=== PATIENT | female | born 1995 | race Caucasian/White ===

== ENCOUNTER 2021-10-06 16:52 | Inpatient (IN) ==
[2021-10-06 17:56] LABS: Basophils # (auto) 0.01 K/uL (0-0.2); Basophils % (auto) 0.1 %; Eosinophils # (auto) 0.07 K/uL (0-0.5); Eosinophils % (auto) 0.8 %; Hematocrit (blood only) 36.7 % (37-47); Hemoglobin 11.8 g/dL (12.0-16.0); Immature Granulocytes # (auto) 0.02 K/uL (0.00-0.02); Immature Granulocytes % (auto) 0.2 %; Lymphocytes # (auto) 1.59 K/uL (1.2-3.4); Lymphocytes % (auto) 19.2 %; Mean Corpuscular Hemoglobin 26.5 pg (25-34); Mean Corpuscular Hgb Conc 32.2 g/dL (32-36); Mean Corpuscular Volume 82.3 fL (80-100); Monocytes # (auto) 0.75 K/uL (0.11-0.59); Monocytes % (auto) 9.1 %; Neutrophils # (auto) 5.82 K/uL (1.4-6.5); Neutrophils % (auto) 70.6 %; Platelet Count 193 K/uL (130-400); RDW Coefficient of Variation 14.4 % (11.5-14.5); RDW Standard Deviation 42.9 fL (36.4-46.3); Red Blood Count 4.46 M/uL (4.2-5.4); White Blood Count 8.26 K/uL (4.8-10.8)
[2021-10-06 18:24] LABS: Albumin Globulin Ratio 1.1 (0.9-2); Albumin Level 3.1 gm/dl (3.4-5.0); BUN Creatinine Ratio 18.2 (10-20); Bilirubin,Total 0.3 mg/dl (0.2-1.0); Calcium 9.1 mg/dl (8.5-10.1); Creatinine Clr Calc Pharmacy 119.9 ml/min; Est GFR (African American) 141.3 ml/min; Est GFR (Non-African American) 121.9 ml/min; Globulin 2.9 gm/dl (2.5-4.0)
[2021-10-06 19:22] LABS: Creatinine Urine Random 67.4 mg/dl; Protein Creatinine Ratio Urine 2.8 (0-0.2); Total Protein Urine Random 190.7 mg/dl (0-11.9)
[2021-10-06] MEDS ORDERED: FAMOTIDINE 20 MG TAB PO STA (20:42)
[2021-10-06] MEDS ORDERED: OXYTOCIN 30 UNITS/500 ML BAG IV PRN ×2 (22:17→22:18)
[2021-10-06] MEDS ORDERED: CARBOHYDRATES FOR HYPOGLYCEMIA PO PRN (22:45)
[2021-10-06] MEDS ORDERED: GLUCOSE 10 TABS/TUBE PO PRN (22:45)
[2021-10-06] MEDS ORDERED: GLUCOSE 40% GEL 15 GM TUBE PO PRN (22:45)
[2021-10-06] MEDS ORDERED: GLUCAGON FOR INJ 1 MG VIAL IM PRN (22:45)
[2021-10-06] MEDS ORDERED: DEXTROSE 50% 50 ML SYRINGE IV PRN (22:45)
--- NOTE | 2021-10-06 22:51 | History & Physical Report ---
Date of Service October 06, 2021 Assessment & Plan (1) Pre-eclampsia, mild: Plan: Elevated BPs on admission to L&D. Urine protein/creatinine ratio is 2.8. Blood testing for preeclampsia is negative. Recommend, given elevated BPs and proteinuria, that we keep patient for admission and begin IOL now. She is agreeable. For GDMA2, will have her eat dinner prior to placement of snowden bulb and then will give nighttime dose of insulin, 14u NPH. Snowden bulb was placed, 35cc sterile water. Tolerated well. Will begin low-dose pitocin for cervical ripening. Pt requesting pain meds if needed overnight - ok for stadol prn. Admission and Anticipated Discharge Date Admission Date: October 06, 2021 History of Present Illness Chief Complaint: IOL, proteinuria Primary Care Provider: ERNESTINE Bruno 26yo @ 39 10/31, directed to L&D from office today when routine urine protein dip showed 3+ proteinuria. She is preparing for IOL tomorrow for GDMA2. +FM, no VB. No LOF. Irreg ctx. No headache, vision changes, RUQ pain. Allergies Allergy/AdvReac Type Severity Reaction Status Date / Time No Known Allergies Allergy Verified 10/06/21 17:13 Home Medications Medication Instructions Recorded Confirmed Type prenat.vits,mati,upc-[id number] 1 tab PO DAILY 02/16/21 10/06/21 History ferrous sulfate 325 mg (65 mg 65 mg PO DAILY 05/10/21 10/06/21 History iron) tablet (FeroSul) acetone (urine) test (Ketone Urine #50 ea 06/03/21 10/06/21 Rx Test) blood sugar diagnostic (OneTouch #150 ea 07/04/21 10/06/21 Rx Verio test strips) pen needle, diabetic 32 gauge x #100 ea 07/08/21 10/06/21 Rx 5/32" (BD Ultra-Fine Afshan Pen Needle) insulin NPH isoph U-100 human 100 14 unit SUBCUT QPM 10/06/21 10/06/21 History unit/mL (3 mL) subcutaneous pen (Humulin N NPH U-100 Insulin KwikPen) sertraline 50 mg tablet (Zoloft) 50 mg PO DAILY 10/06/21 10/06/21 History Patient History Medical History Acne Anxiety Depression Varicella vaccination Surgical History S/P wisdom tooth extraction Family History Grandmother (Maternal) Uterine cancer Aunt Breast cancer Denies family history of Ovarian cancer Prostate cancer Myocardial infarction Colorectal cancer Social History Smoking Status: Never smoker Second Hand Exposure: No; Hx Alcohol Use: No Hx Substance Use: No Preferred Language: Cambodian Communication Ability: Effective Visual Impairment: No Limitations Hearing Ability: Normal [employer] Estate Sales [employer] Required: No Beliefs That Will Affect Care: None marital status: marital status details: Zachary Hill (25) [phone] Current Living Situation: Spouse Current Living Situation Comment: lives with spouse, cat-spouse changing litter current occupational status: employed 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 How many Children do You have: 0 Other Information That Helps Us Care for You: No Feels Safe at Home: Yes Safety Concerns: Feels Safe At This Time Childhood Exposure to Second-Hand Smoke: No caffeine: Yes (nevers drinks more than 8oz of coffee ) during the past year weight has: remained stable Dental Care, Regularly: No Physical Activity Frequency: Does not Exercise Seatbelt Use: always Sunscreen Use: Yes Assistive Devices: None Review of Systems All systems reviewed & are unremarkable except as noted in HPI & below Physical Exam Physical Exam: Cervix 1/50/-3 FHT Cat 1 [place] irreg Constitutional: WD/WN, vitals as above Respiratory: normal respiratory effort, lungs clear to auscultation no respiratory distress Cardiovascular: Rate/Rhythm: regular rate and regular rhythm Gastrointestinal (Abdomen): Inspection/Auscultation: abdomen normal to inspection Percussion/Palpation: abdomen soft; abdomen nontender Gravid. No s/s chorio or abruption. Skin: no rashes, warm and dry Psychiatric: A+Ox3, euthymic affect Results & Data ([facility]) Vital Signs (Past 12 Hours) Vital Signs Temp Pulse Resp BP 10/06/21 21:59 111 H 148/97 H 10/06/21 20:33 37.3 C 83 20 151/97 H 10/06/21 19:21 89 138/96 10/06/21 19:12 87 136/103 H 10/06/21 19:01 89 143/101 H 10/06/21 18:52 89 139/96 10/06/21 18:42 86 152/90 H 10/06/21 18:33 93 H 156/97 H 10/06/21 18:21 88 145/101 H 10/06/21 18:11 82 138/92 10/06/21 18:03 88 160/98 H 10/06/21 17:51 85 157/111 H 10/06/21 17:31 85 143/103 H 10/06/21 17:21 87 146/105 H 10/06/21 17:10 37.1 C 83 20 140/107 H Coding Level of Care Code None Diagnoses Pre-eclampsia, mild O14.00
[2021-10-06] MEDS ORDERED: BUTORPHANOL TARTRATE 1 MG/ML VIAL IV PRN (22:57)
[2021-10-06] MEDS ORDERED: INSULIN HUMAN NPH SC SCH (23:25)
[2021-10-06] MEDS: LACTATED RINGER'S 1,000 ML IV PRN (23:37)
[2021-10-07] MEDS: LACTATED RINGER'S 1,000 ML IV PRN ×3 (07:22→14:02)
--- NOTE | 2021-10-07 07:50 | Labor Progress Brief Note ---
Date of Service October 07, 2021 Subjective Patient notes she is feeling well. Did get some sleep overnight. Assessment & Plan (1) Pre-eclampsia, mild: (2) Insulin controlled gestational diabetes mellitus (GDM) during : Plan: Will now start to go up on the pitocin. fetus category one. no s/s of pet, bps reasonable. Anticipate . Admission and Anticipated Discharge Date Admission Date: October 06, 2021 Physical Exam Physical Exam: snowden removed cx--3/80/-2/soft/post toco--q3-4, pit at 2 efm--110 with mod variabiltiy, accels to 150s, no decels Results & Data ([facility]) Vital Signs (Past 12 Hours) Vital Signs Temp Pulse Resp BP 10/07/21 07:18 90 121/84 10/07/21 07:00 75 131/61 10/07/21 03:45 78 127/72 10/07/21 03:30 36.7 C 16 10/07/21 02:45 77 127/74 10/07/21 01:46 77 124/79 10/07/21 00:46 90 156/105 H 10/06/21 21:59 36.8 C 111 H 16 148/97 H 10/06/21 20:33 37.3 C 83 20 151/97 H Coding Level of Care Code None Diagnoses Pre-eclampsia, mild O14.00 Insulin controlled gestational diabetes mellitus (GDM) during O24.414
[2021-10-07] MEDS ORDERED: ACETAMINOPHEN 500 MG TAB PO ONE (12:07)
[2021-10-07] MEDS ORDERED: SODIUM CHLORIDE 0.9% INJ 10 ML VIAL ONE (12:39)
[2021-10-07] MEDS ORDERED: BUPIVACAINE 0.25% 30 ML VIAL ONE (12:39)
[2021-10-07] MEDS ORDERED: ePHEDrine sulfate 50 MG/ML AMP ONE (12:39)
[2021-10-07] MEDS ORDERED: fentaNYL 2MCG/ML ROPIVACAINE 1.25MG/ML 100 ML BAG EPI ONE (12:40)
[2021-10-07] MEDS ORDERED: fentaNYL citrate 100 MCG/2 ML VIAL ONE (12:40)
[2021-10-07] MEDS ORDERED: ONDANSETRON INJ 2 MG/ML 2 ML VIAL IV PRN (13:32)
[2021-10-07] MEDS ORDERED: NALOXONE HCL 1 MG in SODIUM CHLORIDE 0.9% 1000ML 1,000 ML IV PRN (13:32)
[2021-10-07] MEDS ORDERED: NALBUPHINE HCL INJ 10 MG/ML AMP IV PRN (13:32)
[2021-10-07] MEDS ORDERED: diphenhydrAMINE 50 MG/ML VIAL IV PRN (13:32)
[2021-10-07] MEDS ORDERED: ePHEDrine sulfate 50 MG/ML AMP IV PRN (13:32)
[2021-10-07] MEDS ORDERED: NALOXONE HCL 0.4 MG/1 ML VIAL/CARP IV PRN (13:32)
--- NOTE | 2021-10-07 13:33 | Anesthesiology Consultation ---
Date of Service October 07, 2021 Assessment & Plan (1) Encounter for pre-operative examination: Chart Review Chart Review: Patient NOT seen in Pre Admission Testing and Acceptable Risk for Labor Epidural Consults Requested none History Height/Weight Height: 5 ft 1 in Weight: 75.296 kg Allergies Allergy/AdvReac Type Severity Reaction Status Date / Time No Known Allergies Allergy Verified 10/06/21 17:13 Medications Home Medications Medication Instructions Recorded Confirmed Last Taken prenat.vits,mati,ikc-zrgz-zdtrk 1 tab PO DAILY 02/16/21 10/06/21 10/05/21 21:00 ferrous sulfate 325 mg (65 mg 65 mg PO DAILY 05/10/21 10/06/21 10/05/21 21:00 iron) tablet (FeroSul) acetone (urine) test (Ketone Urine #50 ea 06/03/21 10/06/21 Unknown Test) blood sugar diagnostic (OneTouch #150 ea 07/04/21 10/06/21 Unknown Verio test strips) pen needle, diabetic 32 gauge x #100 ea 07/08/21 10/06/21 Unknown " (BD Ultra-Fine Afshan Pen Needle) insulin NPH isoph U-100 human 100 14 unit SUBCUT QPM 10/06/21 10/06/21 10/04/21 21:00 unit/mL (3 mL) subcutaneous pen (Humulin N NPH U-100 Insulin KwikPen) sertraline 50 mg tablet (Zoloft) 50 mg PO DAILY 10/06/21 10/06/21 10/05/21 21:00 Active Medications Generic Name Dose Route Start Last Admin Trade Name Freq PRN Reason Stop Dose Admin Butorphanol Tartrate 1 mg 10/06/21 22:57 10/07/21 00:56 Butorphanol Tartrate 1 Mg/Ml Vial IV 11/05/21 22:56 1 mg Q2HWA PRN Administration Pain Lactated Ringer's 1,000 mls @ 125 mls/hr 10/06/21 22:17 10/07/21 13:30 Lr IV 10/08/21 22:16 125 mls/hr .Q8H PRN Infusion L&D Protocol Protocol Oxytocin 30 units in 500 mls @ 14 mls/hr 10/06/21 22:18 10/07/21 11:58 Pitocin IV 10/08/21 22:17 0.84 units/hr .Q24H PRN 14 mls/hr Labor Induction/Augmentation Titration Protocol 0.84 UNITS/HR Insulin Human NPH 14 units 10/06/21 23:25 10/07/21 00:50 Insulin Human Nph SC 11/05/21 23:24 14 units QPM EDNA Administration Past Medical History Medical History Acne Anxiety Depression Varicella vaccination Exercise / Class Metabolic Activity II 4-5 Yardwork/Stairs/Walk up hill Past Family History Family History Grandmother (Maternal) Uterine cancer Aunt Breast cancer great aunt Denies family history of Ovarian cancer Prostate cancer Myocardial infarction Colorectal cancer Past Surgical History Surgical History S/P wisdom tooth extraction Past Anesthesia History No Hx of Anesthesia Complications and No Family Hx of Anesthesia Complications History of PONV No Hx of PONV and No Hx of Motion Sickness Social History Smoking Status: Never smoker Hx Alcohol Use: No Hx Substance Use: No Physical Exam Vital Signs Last Vital Signs Temp 36.8 C 10/07/21 11:00 Pulse 95 H 10/07/21 13:32 Resp 18 10/07/21 11:00 BP 124/76 10/07/21 13:31 Pulse Ox 99 10/07/21 13:32 Testing Laboratory Results 10/06/21 17:44 10/06/21 17:44 10/07/21 10/07/21 10/07/21 13:17 12:27 12:03 POC Glucose 82 63 L* 66 L* 10/07/21 10/07/21 10/07/21 11:00 10:07 09:22 POC Glucose 82 68 L* 75 10/07/21 10/07/21 08:16 07:27 POC Glucose 70 70
[2021-10-07] MEDS: DEXTROSE 5% 1,000 ML IV PRN ×2 (14:22→23:50)
--- NOTE | 2021-10-07 15:19 | Labor Progress Brief Note ---
Date of Service October 07, 2021 Subjective comfortable after epidural Assessment & Plan (1) Pre-eclampsia, mild: (2) Insulin controlled gestational diabetes mellitus (GDM) during : Plan: pressures good. arom. continue pitocin, fetus category one. anticipate . Admission and Anticipated Discharge Date Admission Date: October 06, 2021 Physical Exam Physical Exam: cx--4/75/-2 arom--copious clear toco--q2-4min, pit at 14 efm--120s with mod variability, small accels, +scalp stim, no decels Results & Data ([facility]) Vital Signs (Past 12 Hours) Vital Signs Temp Pulse Resp BP Pulse Ox 10/07/21 15:14 68 124/88 10/07/21 15:12 76 99 10/07/21 15:07 96 H 99 10/07/21 15:02 96 H 100 10/07/21 14:57 87 98 10/07/21 14:56 85 119/73 10/07/21 14:53 87 125/72 10/07/21 14:52 91 H 98 10/07/21 14:47 84 130/73 97 10/07/21 14:42 86 126/75 98 10/07/21 14:38 89 123/66 10/07/21 14:37 84 98 10/07/21 14:32 92 H 113/77 98 10/07/21 14:29 84 128/69 10/07/21 14:27 89 98 10/07/21 14:22 89 98 10/07/21 14:21 92 H 123/72 10/07/21 14:17 91 H 99 10/07/21 14:15 96 H 124/72 10/07/21 14:13 85 119/62 10/07/21 14:12 87 98 10/07/21 14:11 88 122/74 10/07/21 14:09 89 125/74 10/07/21 14:07 88 127/73 98 10/07/21 14:05 89 124/71 10/07/21 14:03 93 H 125/74 10/07/21 14:02 101 H 99 10/07/21 14:01 91 H 137/70 10/07/21 13:59 91 H 126/72 10/07/21 13:57 91 H 133/82 100 10/07/21 13:55 90 129/82 10/07/21 13:53 90 132/80 10/07/21 13:52 91 H 99 10/07/21 13:47 91 H 99 10/07/21 13:42 102 H 100 10/07/21 13:37 95 H 99 10/07/21 13:32 95 H 99 10/07/21 13:31 84 124/76 10/07/21 13:27 81 99 10/07/21 13:22 87 100 10/07/21 13:17 94 H 100 10/07/21 13:12 91 H 100 10/07/21 13:07 85 99 10/07/21 13:02 93 H 100 10/07/21 12:57 92 H 100 10/07/21 12:52 97 H 100 10/07/21 12:42 91 H 98 10/07/21 12:37 117 H 91 10/07/21 12:26 94 H 99 10/07/21 12:21 81 99 10/07/21 12:16 71 98 10/07/21 12:11 89 99 10/07/21 12:00 89 119/73 10/07/21 11:02 81 126/60 10/07/21 11:00 36.8 C 18 10/07/21 10:09 86 139/70 10/07/21 09:20 90 151/83 H 10/07/21 08:14 85 131/86 10/07/21 07:18 90 121/84 10/07/21 07:00 37.2 C 75 20 131/61 10/07/21 03:45 78 127/72 10/07/21 03:30 36.7 C 16 Coding Level of Care Code None Diagnoses Pre-eclampsia, mild O14.00 Insulin controlled gestational diabetes mellitus (GDM) during O24.414
--- NOTE | 2021-10-07 20:13 | Labor Progress Brief Note ---
Date of Service October 07, 2021 Subjective comfortable Assessment & Plan (1) Pre-eclampsia, mild: (2) Insulin controlled gestational diabetes mellitus (GDM) during : Plan: doing well. placed iupc, aiming for mvus 200-220, fetus category one. Admission and Anticipated Discharge Date Admission Date: October 06, 2021 Physical Exam Physical Exam: cx--5/75/-2 iupc placed toco--q3-4min, pit at 20 efm--120s with mod variability, accels to 150s, no decels Results & Data ([facility]) Vital Signs (Past 12 Hours) Vital Signs Temp Pulse Resp BP Pulse Ox 10/07/21 20:07 108 H 99 10/07/21 20:02 81 99 10/07/21 20:00 73 146/94 H 10/07/21 19:57 81 99 10/07/21 19:52 77 98 10/07/21 19:47 77 97 10/07/21 19:45 75 149/82 H 10/07/21 19:42 87 97 10/07/21 19:37 80 99 10/07/21 19:35 82 134/94 10/07/21 19:32 77 100 10/07/21 19:30 78 151/101 H 10/07/21 19:27 71 97 10/07/21 19:22 77 98 10/07/21 19:17 70 100 10/07/21 19:14 73 139/97 10/07/21 19:13 37.3 C 18 10/07/21 19:12 79 98 10/07/21 19:07 80 99 10/07/21 19:02 78 99 10/07/21 18:59 83 145/96 H 10/07/21 18:57 85 97 10/07/21 18:52 69 96 10/07/21 18:49 74 94 10/07/21 18:47 69 95 10/07/21 18:44 72 134/87 10/07/21 18:42 71 96 10/07/21 18:37 80 98 10/07/21 18:32 73 95 10/07/21 18:29 69 128/71 10/07/21 18:27 72 95 10/07/21 18:22 71 95 10/07/21 18:17 85 98 10/07/21 18:15 80 136/94 10/07/21 18:12 82 98 10/07/21 18:07 86 96 10/07/21 18:02 74 98 10/07/21 18:01 75 18 138/94 10/07/21 17:57 101 H 98 10/07/21 17:52 90 99 10/07/21 17:47 78 98 10/07/21 17:44 74 119/72 10/07/21 17:42 82 96 10/07/21 17:37 76 96 10/07/21 17:32 74 96 10/07/21 17:30 18 10/07/21 17:29 95 H 127/70 10/07/21 17:27 86 98 10/07/21 17:22 89 97 10/07/21 17:18 67 93 10/07/21 17:17 67 95 10/07/21 17:15 66 122/70 10/07/21 17:13 69 94 10/07/21 17:12 68 96 10/07/21 17:07 67 93 10/07/21 17:02 63 96 10/07/21 16:59 62 119/69 10/07/21 16:57 67 96 10/07/21 16:52 88 98 10/07/21 16:50 37.3 C 18 10/07/21 16:47 84 97 10/07/21 16:46 80 132/74 10/07/21 16:42 82 98 10/07/21 16:40 87 92 10/07/21 16:37 88 98 10/07/21 16:32 80 97 10/07/21 16:30 68 132/91 10/07/21 16:27 75 97 10/07/21 16:22 83 97 10/07/21 16:17 77 98 10/07/21 16:14 80 146/96 H 10/07/21 16:12 86 98 10/07/21 16:07 78 99 10/07/21 16:02 80 97 10/07/21 15:59 74 140/95 10/07/21 15:57 82 97 10/07/21 15:52 82 98 10/07/21 15:47 71 99 10/07/21 15:45 73 134/92 10/07/21 15:42 74 99 10/07/21 15:37 83 96 10/07/21 15:35 37.0 C 18 10/07/21 15:32 79 98 10/07/21 15:30 68 18 123/85 10/07/21 15:27 72 99 10/07/21 15:22 73 98 10/07/21 15:17 73 98 10/07/21 15:14 68 124/88 10/07/21 15:12 76 99 10/07/21 15:07 96 H 99 10/07/21 15:02 96 H 100 10/07/21 15:00 18 10/07/21 14:57 87 98 10/07/21 14:56 85 119/73 10/07/21 14:53 87 125/72 10/07/21 14:52 91 H 98 10/07/21 14:47 84 130/73 97 10/07/21 14:42 86 126/75 98 10/07/21 14:38 89 123/66 10/07/21 14:37 84 98 10/07/21 14:32 92 H 113/77 98 10/07/21 14:30 18 10/07/21 14:29 84 128/69 10/07/21 14:27 89 98 10/07/21 14:22 89 98 10/07/21 14:21 92 H 123/72 10/07/21 14:20 18 10/07/21 14:17 91 H 99 10/07/21 14:15 96 H 124/72 10/07/21 14:13 85 119/62 10/07/21 14:12 87 98 10/07/21 14:11 88 122/74 10/07/21 14:10 20 10/07/21 14:09 89 125/74 10/07/21 14:07 88 127/73 98 10/07/21 14:06 20 10/07/21 14:05 89 124/71 10/07/21 14:03 93 H 125/74 10/07/21 14:02 101 H 20 99 10/07/21 14:01 91 H 137/70 10/07/21 13:59 91 H 126/72 10/07/21 13:57 91 H 133/82 100 10/07/21 13:55 90 129/82 10/07/21 13:53 90 132/80 10/07/21 13:52 91 H 99 10/07/21 13:47 91 H 99 10/07/21 13:42 102 H 100 10/07/21 13:37 95 H 99 10/07/21 13:32 95 H 99 10/07/21 13:31 84 124/76 10/07/21 13:27 81 99 10/07/21 13:22 87 100 10/07/21 13:17 94 H 100 10/07/21 13:12 91 H 100 10/07/21 13:07 85 99 10/07/21 13:02 93 H 100 10/07/21 12:57 92 H 100 10/07/21 12:52 97 H 100 10/07/21 12:42 91 H 98 10/07/21 12:37 117 H 91 10/07/21 12:26 94 H 99 10/07/21 12:21 81 99 10/07/21 12:16 71 98 10/07/21 12:11 89 99 10/07/21 12:00 89 119/73 10/07/21 11:02 81 126/60 10/07/21 11:00 36.8 C 18 10/07/21 10:09 86 139/70 10/07/21 09:20 90 151/83 H 10/07/21 08:14 85 131/86 Coding Level of Care Code None Diagnoses Pre-eclampsia, mild O14.00 Insulin controlled gestational diabetes mellitus (GDM) during O24.414
[2021-10-07] MEDS ORDERED: INSULIN HUMAN NPH SC SCH (21:00)
--- NOTE | 2021-10-08 00:14 | Labor Progress Brief Note ---
Date of Service October 08, 2021 Subjective comfortable after redosing epidural Assessment & Plan (1) Pre-eclampsia, mild: Plan: Not yet adequate but making slow change. Will stay at 30 for another hour. If doesn't get adequate or make further change, plan halving the pit to 15 and going up again. fetus category one. Admission and Anticipated Discharge Date Admission Date: October 06, 2021 Physical Exam Physical Exam: cx--6/100/-1 toco--q3-4min, pit at 30, mvus<200 efm--130s wtih mod variability, accels to 160s, no decels Results & Data ([facility]) Vital Signs (Past 12 Hours) Vital Signs Temp Pulse Resp BP Pulse Ox 10/08/21 00:07 96 H 100 10/08/21 00:02 95 H 99 10/08/21 00:00 93 H 122/82 10/07/21 23:57 101 H 100 10/07/21 23:52 98 H 98 10/07/21 23:47 107 H 100 10/07/21 23:45 98 H 121/77 10/07/21 23:42 84 100 10/07/21 23:37 124 H 100 10/07/21 23:32 116 H 100 10/07/21 23:30 97 H 116/71 10/07/21 23:27 96 H 100 10/07/21 23:22 108 H 100 10/07/21 23:17 106 H 100 10/07/21 23:14 118 H 123/72 10/07/21 23:12 115 H 100 10/07/21 23:07 84 100 10/07/21 23:02 108 H 100 10/07/21 23:01 37.1 C 18 10/07/21 22:59 105 H 122/72 10/07/21 22:57 84 100 10/07/21 22:52 98 H 100 10/07/21 22:47 114 H 100 10/07/21 22:44 103 H 128/76 10/07/21 22:42 95 H 100 10/07/21 22:37 112 H 100 10/07/21 22:32 111 H 100 10/07/21 22:29 102 H 132/82 10/07/21 22:27 88 100 10/07/21 22:22 91 H 99 10/07/21 22:19 96 H 143/94 H 10/07/21 22:17 87 147/99 H 100 10/07/21 22:16 82 142/91 H 10/07/21 22:12 85 100 10/07/21 22:07 81 99 10/07/21 22:02 86 100 10/07/21 22:00 83 139/89 10/07/21 21:57 77 100 10/07/21 21:52 88 100 10/07/21 21:47 98 H 99 10/07/21 21:44 77 138/76 10/07/21 21:42 80 99 10/07/21 21:37 79 99 10/07/21 21:32 86 99 10/07/21 21:31 80 134/73 10/07/21 21:27 88 94 10/07/21 21:22 110 H 97 10/07/21 21:17 84 98 10/07/21 21:16 82 147/80 H 10/07/21 21:12 75 97 10/07/21 21:07 80 97 10/07/21 21:02 89 97 10/07/21 21:00 82 148/89 H 10/07/21 20:57 86 97 10/07/21 20:52 85 98 10/07/21 20:47 78 99 10/07/21 20:44 87 135/89 10/07/21 20:42 86 99 10/07/21 20:37 70 96 10/07/21 20:32 78 100 10/07/21 20:31 72 154/94 H 10/07/21 20:27 69 98 10/07/21 20:22 71 97 10/07/21 20:17 75 99 10/07/21 20:15 74 129/74 10/07/21 20:12 86 100 10/07/21 20:07 36.8 C 108 H 18 99 10/07/21 20:02 81 99 10/07/21 20:00 73 146/94 H 10/07/21 19:57 81 99 10/07/21 19:52 77 98 10/07/21 19:47 77 97 10/07/21 19:45 75 149/82 H 10/07/21 19:42 87 97 10/07/21 19:37 80 99 10/07/21 19:35 82 134/94 10/07/21 19:32 77 100 10/07/21 19:30 78 151/101 H 10/07/21 19:27 71 97 10/07/21 19:22 77 98 10/07/21 19:17 70 100 10/07/21 19:14 73 139/97 10/07/21 19:13 37.3 C 18 10/07/21 19:12 79 98 10/07/21 19:07 80 99 10/07/21 19:02 78 99 10/07/21 18:59 83 145/96 H 10/07/21 18:57 85 97 10/07/21 18:52 69 96 10/07/21 18:49 74 94 10/07/21 18:47 69 95 10/07/21 18:44 72 134/87 10/07/21 18:42 71 96 10/07/21 18:37 80 98 10/07/21 18:32 73 95 10/07/21 18:29 69 128/71 10/07/21 18:27 72 95 10/07/21 18:22 71 95 10/07/21 18:17 85 98 10/07/21 18:15 80 136/94 10/07/21 18:12 82 98 10/07/21 18:07 86 96 10/07/21 18:02 74 98 10/07/21 18:01 75 18 138/94 10/07/21 17:57 101 H 98 10/07/21 17:52 90 99 10/07/21 17:47 78 98 10/07/21 17:44 74 119/72 10/07/21 17:42 82 96 10/07/21 17:37 76 96 10/07/21 17:32 74 96 10/07/21 17:30 18 10/07/21 17:29 95 H 127/70 10/07/21 17:27 86 98 10/07/21 17:22 89 97 10/07/21 17:18 67 93 10/07/21 17:17 67 95 10/07/21 17:15 66 122/70 10/07/21 17:13 69 94 10/07/21 17:12 68 96 10/07/21 17:07 67 93 10/07/21 17:02 63 96 10/07/21 16:59 62 119/69 10/07/21 16:57 67 96 10/07/21 16:52 88 98 10/07/21 16:50 37.3 C 18 10/07/21 16:47 84 97 10/07/21 16:46 80 132/74 10/07/21 16:42 82 98 10/07/21 16:40 87 92 10/07/21 16:37 88 98 10/07/21 16:32 80 97 10/07/21 16:30 68 132/91 10/07/21 16:27 75 97 10/07/21 16:22 83 97 10/07/21 16:17 77 98 10/07/21 16:14 80 146/96 H 10/07/21 16:12 86 98 10/07/21 16:07 78 99 10/07/21 16:02 80 97 10/07/21 15:59 74 140/95 10/07/21 15:57 82 97 10/07/21 15:52 82 98 10/07/21 15:47 71 99 10/07/21 15:45 73 134/92 10/07/21 15:42 74 99 10/07/21 15:37 83 96 10/07/21 15:35 37.0 C 18 10/07/21 15:32 79 98 10/07/21 15:30 68 18 123/85 10/07/21 15:27 72 99 10/07/21 15:22 73 98 10/07/21 15:17 73 98 10/07/21 15:14 68 124/88 10/07/21 15:12 76 99 10/07/21 15:07 96 H 99 10/07/21 15:02 96 H 100 10/07/21 15:00 18 10/07/21 14:57 87 98 10/07/21 14:56 85 119/73 10/07/21 14:53 87 125/72 10/07/21 14:52 91 H 98 10/07/21 14:47 84 130/73 97 10/07/21 14:42 86 126/75 98 10/07/21 14:38 89 123/66 10/07/21 14:37 84 98 10/07/21 14:32 92 H 113/77 98 10/07/21 14:30 18 10/07/21 14:29 84 128/69 10/07/21 14:27 89 98 10/07/21 14:22 89 98 10/07/21 14:21 92 H 123/72 10/07/21 14:20 18 10/07/21 14:17 91 H 99 10/07/21 14:15 96 H 124/72 10/07/21 14:13 85 119/62 10/07/21 14:12 87 98 10/07/21 14:11 88 122/74 10/07/21 14:10 20 10/07/21 14:09 89 125/74 10/07/21 14:07 88 127/73 98 10/07/21 14:06 20 10/07/21 14:05 89 124/71 10/07/21 14:03 93 H 125/74 10/07/21 14:02 101 H 20 99 10/07/21 14:01 91 H 137/70 10/07/21 13:59 91 H 126/72 10/07/21 13:57 91 H 133/82 100 10/07/21 13:55 90 129/82 10/07/21 13:53 90 132/80 10/07/21 13:52 91 H 99 10/07/21 13:47 91 H 99 10/07/21 13:42 102 H 100 10/07/21 13:37 95 H 99 10/07/21 13:32 95 H 99 10/07/21 13:31 84 124/76 10/07/21 13:27 81 99 10/07/21 13:22 87 100 10/07/21 13:17 94 H 100 10/07/21 13:12 91 H 100 10/07/21 13:07 85 99 10/07/21 13:02 93 H 100 10/07/21 12:57 92 H 100 10/07/21 12:52 97 H 100 10/07/21 12:42 91 H 98 10/07/21 12:37 117 H 91 10/07/21 12:26 94 H 99 10/07/21 12:21 81 99 10/07/21 12:16 71 98 Coding Level of Care Code None Diagnoses Pre-eclampsia, mild O14.00
[2021-10-08] MEDS: fentaNYL 2MCG/ML ROPIVACAINE 1.25MG/ML 100 ML BAG EPI PRN ×2 (00:49→09:24)
--- NOTE | 2021-10-08 01:45 | Labor Progress Brief Note ---
Date of Service October 08, 2021 Subjective breathing through contractions again. Assessment & Plan (1) Pre-eclampsia, mild: Plan: Discussed situation in detail with the patient and fob. MVUS not adequate at this point. Can half pit and try again and explained how that might work. If gets adequate, would hold and start timer. If does not get adequate, would then go up to 30 again. cephalic is transverse at present, hopefully turning. Patient is tearful at this point, not sure she can do it. Discussed how this might work. Discussed she could just tell me that she was done and request a c/s now, risks discussed. Discussed that I just could not tell what would happen but that I have had success with this method before. Discussed that her vitals are stable, she is afebrile and baby is category one. She is ok with continuing to attempt a vaginal delivery. Admission and Anticipated Discharge Date Admission Date: October 06, 2021 Physical Exam Physical Exam: cx--6-7/100/-1, transverse, occiputleft toco--q2-5min, pit at 30, mvus<200 efm--130s with mod variability, accels to 150s, no decels Results & Data ([facility]) Vital Signs (Past 12 Hours) Vital Signs Temp Pulse Resp BP Pulse Ox 10/08/21 01:37 100 H 100 10/08/21 01:34 103 H 125/70 10/08/21 01:32 98 H 99 10/08/21 01:27 92 H 100 10/08/21 01:22 83 98 10/08/21 01:17 86 98 10/08/21 01:14 90 139/95 10/08/21 01:12 95 H 99 10/08/21 01:07 103 H 100 10/08/21 01:02 97 H 98 10/08/21 00:59 85 127/86 10/08/21 00:57 93 H 98 10/08/21 00:52 91 H 100 10/08/21 00:47 84 98 10/08/21 00:44 89 122/84 10/08/21 00:42 92 H 98 10/08/21 00:37 99 H 98 10/08/21 00:32 77 96 10/08/21 00:30 81 121/76 10/08/21 00:27 80 97 10/08/21 00:22 88 97 10/08/21 00:17 81 98 10/08/21 00:15 87 122/79 10/08/21 00:12 117 H 99 10/08/21 00:10 37.3 C 18 10/08/21 00:07 96 H 100 10/08/21 00:02 95 H 99 10/08/21 00:00 93 H 122/82 10/07/21 23:57 101 H 100 10/07/21 23:52 98 H 98 10/07/21 23:47 107 H 100 10/07/21 23:45 98 H 121/77 10/07/21 23:42 84 100 10/07/21 23:37 124 H 100 10/07/21 23:32 116 H 100 10/07/21 23:30 97 H 116/71 10/07/21 23:27 96 H 100 10/07/21 23:22 108 H 100 10/07/21 23:17 106 H 100 10/07/21 23:14 118 H 123/72 10/07/21 23:12 115 H 100 10/07/21 23:07 84 100 10/07/21 23:02 108 H 100 10/07/21 23:01 37.1 C 18 10/07/21 22:59 105 H 122/72 10/07/21 22:57 84 100 10/07/21 22:52 98 H 100 10/07/21 22:47 114 H 100 10/07/21 22:44 103 H 128/76 10/07/21 22:42 95 H 100 10/07/21 22:37 112 H 100 10/07/21 22:32 111 H 100 10/07/21 22:29 102 H 132/82 10/07/21 22:27 88 100 10/07/21 22:22 91 H 99 10/07/21 22:19 96 H 143/94 H 10/07/21 22:17 87 147/99 H 100 10/07/21 22:16 82 142/91 H 10/07/21 22:12 85 100 10/07/21 22:07 81 99 10/07/21 22:02 86 100 10/07/21 22:00 83 139/89 10/07/21 21:57 77 100 10/07/21 21:52 88 100 10/07/21 21:47 98 H 99 10/07/21 21:44 77 138/76 10/07/21 21:42 80 99 10/07/21 21:37 79 99 10/07/21 21:32 86 99 10/07/21 21:31 80 134/73 10/07/21 21:27 88 94 10/07/21 21:22 110 H 97 10/07/21 21:17 84 98 10/07/21 21:16 82 147/80 H 10/07/21 21:12 75 97 10/07/21 21:07 80 97 10/07/21 21:02 89 97 10/07/21 21:00 82 148/89 H 10/07/21 20:57 86 97 10/07/21 20:52 85 98 10/07/21 20:47 78 99 10/07/21 20:44 87 135/89 10/07/21 20:42 86 99 10/07/21 20:37 70 96 10/07/21 20:32 78 100 10/07/21 20:31 72 154/94 H 10/07/21 20:27 69 98 10/07/21 20:22 71 97 10/07/21 20:17 75 99 10/07/21 20:15 74 129/74 10/07/21 20:12 86 100 10/07/21 20:07 36.8 C 108 H 18 99 10/07/21 20:02 81 99 10/07/21 20:00 73 146/94 H 10/07/21 19:57 81 99 10/07/21 19:52 77 98 10/07/21 19:47 77 97 10/07/21 19:45 75 149/82 H 10/07/21 19:42 87 97 10/07/21 19:37 80 99 10/07/21 19:35 82 134/94 10/07/21 19:32 77 100 10/07/21 19:30 78 151/101 H 10/07/21 19:27 71 97 10/07/21 19:22 77 98 10/07/21 19:17 70 100 10/07/21 19:14 73 139/97 10/07/21 19:13 37.3 C 18 10/07/21 19:12 79 98 10/07/21 19:07 80 99 02/11/22 19:02 78 99 10/07/21 18:59 83 145/96 H 10/07/21 18:57 85 97 10/07/21 18:52 69 96 10/07/21 18:49 74 94 10/07/21 18:47 69 95 10/07/21 18:44 72 134/87 10/07/21 18:42 71 96 10/07/21 18:37 80 98 10/07/21 18:32 73 95 10/07/21 18:29 69 128/71 10/07/21 18:27 72 95 10/07/21 18:22 71 95 10/07/21 18:17 85 98 10/07/21 18:15 80 136/94 10/07/21 18:12 82 98 10/07/21 18:07 86 96 10/07/21 18:02 74 98 10/07/21 18:01 75 18 138/94 10/07/21 17:57 101 H 98 10/07/21 17:52 90 99 10/07/21 17:47 78 98 10/07/21 17:44 74 119/72 10/07/21 17:42 82 96 10/07/21 17:37 76 96 10/07/21 17:32 74 96 10/07/21 17:30 18 10/07/21 17:29 95 H 127/70 10/07/21 17:27 86 98 10/07/21 17:22 89 97 10/07/21 17:18 67 93 10/07/21 17:17 67 95 10/07/21 17:15 66 122/70 10/07/21 17:13 69 94 10/07/21 17:12 68 96 10/07/21 17:07 67 93 10/07/21 17:02 63 96 10/07/21 16:59 62 119/69 10/07/21 16:57 67 96 10/07/21 16:52 88 98 10/07/21 16:50 37.3 C 18 10/07/21 16:47 84 97 10/07/21 16:46 80 132/74 10/07/21 16:42 82 98 10/07/21 16:40 87 92 10/07/21 16:37 88 98 10/07/21 16:32 80 97 10/07/21 16:30 68 132/91 10/07/21 16:27 75 97 10/07/21 16:22 83 97 10/07/21 16:17 77 98 10/07/21 16:14 80 146/96 H 10/07/21 16:12 86 98 10/07/21 16:07 78 99 10/07/21 16:02 80 97 10/07/21 15:59 74 140/95 10/07/21 15:57 82 97 10/07/21 15:52 82 98 10/07/21 15:47 71 99 10/07/21 15:45 73 134/92 10/07/21 15:42 74 99 10/07/21 15:37 83 96 10/07/21 15:35 37.0 C 18 10/07/21 15:32 79 98 10/07/21 15:30 68 18 123/85 10/07/21 15:27 72 99 10/07/21 15:22 73 98 10/07/21 15:17 73 98 10/07/21 15:14 68 124/88 10/07/21 15:12 76 99 10/07/21 15:07 96 H 99 10/07/21 15:02 96 H 100 10/07/21 15:00 18 10/07/21 14:57 87 98 10/07/21 14:56 85 119/73 10/07/21 14:53 87 125/72 10/07/21 14:52 91 H 98 10/07/21 14:47 84 130/73 97 10/07/21 14:42 86 126/75 98 10/07/21 14:38 89 123/66 10/07/21 14:37 84 98 10/07/21 14:32 92 H 113/77 98 10/07/21 14:30 18 10/07/21 14:29 84 128/69 10/07/21 14:27 89 98 10/07/21 14:22 89 98 10/07/21 14:21 92 H 123/72 10/07/21 14:20 18 10/07/21 14:17 91 H 99 10/07/21 14:15 96 H 124/72 10/07/21 14:13 85 119/62 10/07/21 14:12 87 98 10/07/21 14:11 88 122/74 10/07/21 14:10 20 10/07/21 14:09 89 125/74 10/07/21 14:07 88 127/73 98 10/07/21 14:06 20 10/07/21 14:05 89 124/71 10/07/21 14:03 93 H 125/74 10/07/21 14:02 101 H 20 99 10/07/21 14:01 91 H 137/70 10/07/21 13:59 91 H 126/72 10/07/21 13:57 91 H 133/82 100 10/07/21 13:55 90 129/82 10/07/21 13:53 90 132/80 10/07/21 13:52 91 H 99 10/07/21 13:47 91 H 99 10/07/21 13:42 102 H 100 Coding Level of Care Code None Diagnoses Pre-eclampsia, mild O14.00
--- NOTE | 2021-10-08 05:19 | Labor Progress Brief Note ---
Date of Service October 08, 2021 Subjective notes some pressure Assessment & Plan (1) Pre-eclampsia, mild: Plan: Making slow positive change. Now feeling pressure from baby's head. fetus category one. anticipate . Admission and Anticipated Discharge Date Admission Date: October 06, 2021 Physical Exam Physical Exam: cx--/-1 toco--iupc fell out, pit at 26 efm--120s with mod variability, accels to 150s, no decels Results & Data ([facility]) Vital Signs (Past 12 Hours) Vital Signs Temp Pulse Resp BP Pulse Ox 10/08/21 05:15 109 H 175/93 H 10/08/21 05:12 109 H 99 10/08/21 05:07 112 H 155/76 H 99 10/08/21 05:02 119 H 100 10/08/21 05:00 106 H 170/106 H 10/08/21 04:57 97 H 99 10/08/21 04:56 102 H 91 10/08/21 04:52 96 H 98 10/08/21 04:50 88 92 10/08/21 04:47 90 98 10/08/21 04:45 93 H 136/94 10/08/21 04:42 91 H 97 10/08/21 04:37 96 H 92 10/08/21 04:32 93 H 93 10/08/21 04:30 77 108/64 10/08/21 04:27 79 95 10/08/21 04:22 84 96 10/08/21 04:21 37.2 C 10/08/21 04:17 86 97 10/08/21 04:14 102 H 130/67 10/08/21 04:12 112 H 95 10/08/21 04:09 37.2 C 92 H 18 94 10/08/21 04:07 83 95 10/08/21 04:02 79 94 10/08/21 04:01 81 93 10/08/21 03:59 79 102/57 L 10/08/21 03:57 81 95 10/08/21 03:54 77 94 10/08/21 03:52 92 H 96 10/08/21 03:47 78 94 10/08/21 03:44 78 104/57 L 10/08/21 03:42 79 95 10/08/21 03:41 78 94 10/08/21 03:37 77 95 10/08/21 03:32 91 H 95 10/08/21 03:30 80 106/56 L 10/08/21 03:29 80 94 10/08/21 03:27 83 95 10/08/21 03:25 18 10/08/21 03:23 83 94 10/08/21 03:22 96 H 96 10/08/21 03:17 83 93 10/08/21 03:16 80 94 10/08/21 03:14 89 106/55 L 10/08/21 03:12 81 95 10/08/21 03:10 85 94 10/08/21 03:07 109 H 96 10/08/21 03:02 84 93 10/08/21 02:59 81 103/53 L 10/08/21 02:57 79 95 10/08/21 02:56 82 93 10/08/21 02:52 83 95 10/08/21 02:47 98 H 96 10/08/21 02:45 86 113/58 L 10/08/21 02:42 102 H 95 10/08/21 02:37 87 96 10/08/21 02:32 90 97 10/08/21 02:29 89 131/69 10/08/21 02:27 95 H 97 10/08/21 02:24 91 H 139/75 10/08/21 02:22 98 H 156/93 H 97 10/08/21 02:19 97 H 144/80 H 10/08/21 02:17 93 H 98 10/08/21 02:15 37.0 C 10/08/21 02:14 90 146/84 H 10/08/21 02:12 89 97 10/08/21 02:07 89 97 10/08/21 02:02 98 H 99 10/08/21 02:00 18 10/08/21 01:59 93 H 129/86 10/08/21 01:57 90 98 10/08/21 01:52 87 99 10/08/21 01:47 92 H 98 10/08/21 01:46 109 H 130/90 10/08/21 01:42 95 H 100 10/08/21 01:37 100 H 100 10/08/21 01:34 103 H 125/70 10/08/21 01:32 98 H 99 10/08/21 01:30 18 10/08/21 01:27 92 H 100 10/08/21 01:22 83 98 10/08/21 01:17 86 98 10/08/21 01:14 90 139/95 10/08/21 01:12 95 H 99 10/08/21 01:07 103 H 100 10/08/21 01:02 97 H 98 10/08/21 01:00 18 10/08/21 00:59 85 127/86 10/08/21 00:57 93 H 98 10/08/21 00:52 91 H 100 10/08/21 00:47 84 98 10/08/21 00:44 89 122/84 10/08/21 00:42 92 H 98 10/08/21 00:37 99 H 98 10/08/21 00:32 77 96 10/08/21 00:30 81 18 121/76 10/08/21 00:27 80 97 10/08/21 00:22 88 97 10/08/21 00:17 81 98 10/08/21 00:15 87 122/79 10/08/21 00:12 117 H 99 10/08/21 00:10 37.3 C 18 10/08/21 00:07 96 H 100 10/08/21 00:02 95 H 99 10/08/21 00:00 93 H 18 122/82 10/07/21 23:57 101 H 100 10/07/21 23:52 98 H 98 10/07/21 23:47 107 H 100 10/07/21 23:45 98 H 121/77 10/07/21 23:42 84 100 10/07/21 23:37 124 H 100 10/07/21 23:32 116 H 100 10/07/21 23:30 97 H 116/71 10/07/21 23:27 96 H 100 10/07/21 23:22 108 H 100 10/07/21 23:17 106 H 100 10/07/21 23:14 118 H 123/72 10/07/21 23:12 115 H 100 10/07/21 23:07 84 100 10/07/21 23:02 108 H 100 10/07/21 23:01 37.1 C 18 10/07/21 22:59 105 H 122/72 10/07/21 22:57 84 100 0211/22 22:52 98 H 100 10/07/21 22:47 114 H 100 10/07/21 22:44 103 H 128/76 10/07/21 22:42 95 H 100 10/07/21 22:37 112 H 100 10/07/21 22:32 111 H 100 10/07/21 22:29 102 H 132/82 10/07/21 22:27 88 100 10/07/21 22:22 91 H 99 10/07/21 22:19 96 H 143/94 H 10/07/21 22:17 87 147/99 H 100 10/07/21 22:16 82 142/91 H 10/07/21 22:12 85 100 10/07/21 22:07 81 99 10/07/21 22:02 86 100 10/07/21 22:00 83 139/89 10/07/21 21:57 77 100 10/07/21 21:52 88 100 10/07/21 21:47 98 H 99 10/07/21 21:44 77 138/76 10/07/21 21:42 80 99 10/07/21 21:37 79 99 10/07/21 21:32 86 99 10/07/21 21:31 80 134/73 10/07/21 21:27 88 94 10/07/21 21:22 110 H 97 10/07/21 21:17 84 98 10/07/21 21:16 82 147/80 H 10/07/21 21:12 75 97 10/07/21 21:07 80 97 10/07/21 21:02 89 97 10/07/21 21:00 82 148/89 H 10/07/21 20:57 86 97 10/07/21 20:52 85 98 10/07/21 20:47 78 99 10/07/21 20:44 87 135/89 10/07/21 20:42 86 99 10/07/21 20:37 70 96 10/07/21 20:32 78 100 10/07/21 20:31 72 154/94 H 10/07/21 20:27 69 98 10/07/21 20:22 71 97 10/07/21 20:17 75 99 10/07/21 20:15 74 129/74 10/07/21 20:12 86 100 10/07/21 20:07 36.8 C 108 H 18 99 10/07/21 20:02 81 99 10/07/21 20:00 73 146/94 H 10/07/21 19:57 81 99 10/07/21 19:52 77 98 10/07/21 19:47 77 97 10/07/21 19:45 75 149/82 H 10/07/21 19:42 87 97 10/07/21 19:37 80 99 10/07/21 19:35 82 134/94 10/07/21 19:32 77 100 10/07/21 19:30 78 151/101 H 10/07/21 19:27 71 97 10/07/21 19:22 77 98 10/07/21 19:17 70 100 10/07/21 19:14 73 139/97 10/07/21 19:13 37.3 C 18 10/07/21 19:12 79 98 10/07/21 19:07 80 99 10/07/21 19:02 78 99 10/07/21 18:59 83 145/96 H 10/07/21 18:57 85 97 10/07/21 18:52 69 96 10/07/21 18:49 74 94 10/07/21 18:47 69 95 10/07/21 18:44 72 134/87 10/07/21 18:42 71 96 10/07/21 18:37 80 98 10/07/21 18:32 73 95 10/07/21 18:29 69 128/71 10/07/21 18:27 72 95 10/07/21 18:22 71 95 10/07/21 18:17 85 98 10/07/21 18:15 80 136/94 10/07/21 18:12 82 98 10/07/21 18:07 86 96 10/07/21 18:02 74 98 10/07/21 18:01 75 18 138/94 10/07/21 17:57 101 H 98 10/07/21 17:52 90 99 10/07/21 17:47 78 98 10/07/21 17:44 74 119/72 10/07/21 17:42 82 96 10/07/21 17:37 76 96 10/07/21 17:32 74 96 10/07/21 17:30 18 10/07/21 17:29 95 H 127/70 10/07/21 17:27 86 98 10/07/21 17:22 89 97 10/07/21 17:18 67 93 Coding Level of Care Code None Diagnoses Pre-eclampsia, mild O14.00
--- NOTE | 2021-10-08 06:53 | Communication Note ---
Date of Service: October 08, 2021 Bolused patient severed times overnight per nursing and patient request (see nursing note for times). Each time bolused 3ml of 2% lidocaine mixed with 0.5% ropivicaine. Patient placed on monitor and VSS. Obtained good pain relief after each bolus and they were spaced out 4 hours between boluses.
--- NOTE | 2021-10-08 07:56 | Labor Progress Brief Note ---
Date of Service October 08, 2021 Subjective feels ctx but breathing with them, feels more pressure. bladder just drained. Assessment & Plan (1) Pre-eclampsia, mild: (2) Insulin controlled gestational diabetes mellitus (GDM) during : (3) Encounter for induction of labor: Plan: some cx change. may benefit from position change to help cx dilate. fhts categ 1. bps noted. mild range. c/w pit. pt and partner aware i am taking over care. Admission and Anticipated Discharge Date Admission Date: October 06, 2021 Physical Exam Constitutional: WD/WN, vitals as above Genitourinary: Manual OB Exam: + cervical dilation 9 cm, + cervical effacement (thick ant right lip) 100% and + station + 2 OB Exam Monitor Tracing: + external FHT monitor used, + external uterine monitor used (q2-3 pit at 26), + category I (some earlys and +scalp stim response) and + normal FHT variability Results & Data ([facility]) Vital Signs (Past 12 Hours) Vital Signs Temp Pulse Resp BP Pulse Ox 10/08/21 07:49 117 H 133/81 10/08/21 07:33 112 H 157/98 H 10/08/21 07:28 99 H 139/97 10/08/21 07:23 100 H 146/105 H 10/08/21 07:19 93 H 138/85 10/08/21 07:13 106 H 137/85 10/08/21 07:08 106 H 132/83 10/08/21 07:04 104 H 119/57 L 10/08/21 06:58 90 111/57 L 10/08/21 06:53 98 H 117/66 10/08/21 06:48 94 H 126/68 10/08/21 06:44 100 H 126/58 L 10/08/21 06:38 97 H 130/82 10/08/21 06:34 107 H 124/71 10/08/21 06:28 102 H 120/61 10/08/21 06:23 103 H 135/68 10/08/21 06:18 118 H 128/73 10/08/21 06:13 110 H 132/81 10/08/21 06:09 106 H 131/77 10/08/21 06:06 114 H 144/79 H 10/08/21 06:03 125 H 128/80 10/08/21 05:58 116 H 99 10/08/21 05:53 113 H 98 10/08/21 05:48 110 H 98 10/08/21 05:45 106 H 147/72 H 10/08/21 05:44 99.5 F 10/08/21 05:43 115 H 98 10/08/21 05:38 124 H 98 10/08/21 05:33 18 10/08/21 05:32 114 H 99 10/08/21 05:29 112 H 158/79 H 10/08/21 05:27 107 H 99 10/08/21 05:22 116 H 98 10/08/21 05:20 108 H 158/95 H 10/08/21 05:17 108 H 99 10/08/21 05:15 109 H 175/93 H 10/08/21 05:12 109 H 99 10/08/21 05:07 112 H 155/76 H 99 10/08/21 05:02 119 H 100 10/08/21 05:00 106 H 170/106 H 10/08/21 04:57 97 H 99 10/08/21 04:56 102 H 91 10/08/21 04:52 96 H 98 10/08/21 04:50 88 92 10/08/21 04:47 90 98 10/08/21 04:45 93 H 136/94 10/08/21 04:42 91 H 97 10/08/21 04:37 96 H 92 10/08/21 04:32 93 H 93 10/08/21 04:30 77 108/64 10/08/21 04:27 79 95 10/08/21 04:22 84 96 10/08/21 04:21 99.0 F 10/08/21 04:17 86 97 10/08/21 04:14 102 H 130/67 10/08/21 04:12 112 H 95 10/08/21 04:09 99.0 F 92 H 18 94 10/08/21 04:07 83 95 10/08/21 04:02 79 94 10/08/21 04:01 81 93 10/08/21 03:59 79 102/57 L 10/08/21 03:57 81 95 10/08/21 03:54 77 94 10/08/21 03:52 92 H 96 10/08/21 03:47 78 94 10/08/21 03:44 78 104/57 L 10/08/21 03:42 79 95 10/08/21 03:41 78 94 10/08/21 03:37 77 95 10/08/21 03:32 91 H 95 10/08/21 03:30 80 106/56 L 10/08/21 03:29 80 94 10/08/21 03:27 83 95 10/08/21 03:25 18 10/08/21 03:23 83 94 10/08/21 03:22 96 H 96 10/08/21 03:17 83 93 10/08/21 03:16 80 94 10/08/21 03:14 89 106/55 L 10/08/21 03:12 81 95 10/08/21 03:10 85 94 10/08/21 03:07 109 H 96 10/08/21 03:02 84 93 10/08/21 02:59 81 103/53 L 10/08/21 02:57 79 95 10/08/21 02:56 82 93 10/08/21 02:52 83 95 10/08/21 02:47 98 H 96 10/08/21 02:45 86 113/58 L 10/08/21 02:42 102 H 95 10/08/21 02:37 87 96 10/08/21 02:32 90 97 10/08/21 02:29 89 131/69 10/08/21 02:27 95 H 97 10/08/21 02:24 91 H 139/75 10/08/21 02:22 98 H 156/93 H 97 10/08/21 02:19 97 H 144/80 H 10/08/21 02:17 93 H 98 10/08/21 02:15 98.6 F 10/08/21 02:14 90 146/84 H 10/08/21 02:12 89 97 10/08/21 02:07 89 97 10/08/21 02:02 98 H 99 10/08/21 02:00 18 10/08/21 01:59 93 H 129/86 10/08/21 01:57 90 98 10/08/21 01:52 87 99 10/08/21 01:47 92 H 98 10/08/21 01:46 109 H 130/90 10/08/21 01:42 95 H 100 10/08/21 01:37 100 H 100 10/08/21 01:34 103 H 125/70 10/08/21 01:32 98 H 99 10/08/21 01:30 18 10/08/21 01:27 92 H 100 10/08/21 01:22 83 98 10/08/21 01:17 86 98 10/08/21 01:14 90 139/95 10/08/21 01:12 95 H 99 10/08/21 01:07 103 H 100 10/08/21 01:02 97 H 98 10/08/21 01:00 18 10/08/21 00:59 85 127/86 10/08/21 00:57 93 H 98 10/08/21 00:52 91 H 100 10/08/21 00:47 84 98 10/08/21 00:44 89 122/84 10/08/21 00:42 92 H 98 10/08/21 00:37 99 H 98 10/08/21 00:32 77 96 10/08/21 00:30 81 18 121/76 10/08/21 00:27 80 97 10/08/21 00:22 88 97 10/08/21 00:17 81 98 10/08/21 00:15 87 122/79 10/08/21 00:12 117 H 99 10/08/21 00:10 99.1 F 18 10/08/21 00:07 96 H 100 10/08/21 00:02 95 H 99 10/08/21 00:00 93 H 18 122/82 10/07/21 23:57 101 H 100 10/07/21 23:52 98 H 98 10/07/21 23:47 107 H 100 10/07/21 23:45 98 H 121/77 10/07/21 23:42 84 100 10/07/21 23:37 124 H 100 10/07/21 23:32 116 H 100 10/07/21 23:30 97 H 116/71 10/07/21 23:27 96 H 100 10/07/21 23:22 108 H 100 10/07/21 23:17 106 H 100 10/07/21 23:14 118 H 123/72 10/07/21 23:12 115 H 100 10/07/21 23:07 84 100 10/07/21 23:02 108 H 100 10/07/21 23:01 98.8 F 18 10/07/21 22:59 105 H 122/72 10/07/21 22:57 84 100 10/07/21 22:52 98 H 100 10/07/21 22:47 114 H 100 10/07/21 22:44 103 H 128/76 10/07/21 22:42 95 H 100 10/07/21 22:37 112 H 100 10/07/21 22:32 111 H 100 10/07/21 22:29 102 H 132/82 10/07/21 22:27 88 100 10/07/21 22:22 91 H 99 10/07/21 22:19 96 H 143/94 H 10/07/21 22:17 87 147/99 H 100 10/07/21 22:16 82 142/91 H 10/07/21 22:12 85 100 10/07/21 22:07 81 99 10/07/21 22:02 86 100 10/07/21 22:00 83 139/89 10/07/21 21:57 77 100 10/07/21 21:52 88 100 10/07/21 21:47 98 H 99 10/07/21 21:44 77 138/76 10/07/21 21:42 80 99 10/07/21 21:37 79 99 10/07/21 21:32 86 99 10/07/21 21:31 80 134/73 10/07/21 21:27 88 94 10/07/21 21:22 110 H 97 10/07/21 21:17 84 98 10/07/21 21:16 82 147/80 H 10/07/21 21:12 75 97 10/07/21 21:07 80 97 10/07/21 21:02 89 97 10/07/21 21:00 82 148/89 H 10/07/21 20:57 86 97 10/07/21 20:52 85 98 10/07/21 20:47 78 99 10/07/21 20:44 87 135/89 10/07/21 20:42 86 99 10/07/21 20:37 70 96 10/07/21 20:32 78 100 10/07/21 20:31 72 154/94 H 10/07/21 20:27 69 98 10/07/21 20:22 71 97 10/07/21 20:17 75 99 10/07/21 20:15 74 129/74 10/07/21 20:12 86 100 10/07/21 20:07 98.2 F 108 H 18 99 10/07/21 20:02 81 99 10/07/21 20:00 73 146/94 H 10/07/21 19:57 81 99 Coding Level of Care Code None Diagnoses Pre-eclampsia, mild O14.00 Insulin controlled gestational diabetes mellitus (GDM) during O24.414 Encounter for induction of labor Z34.90
[2021-10-08] MEDS: DEXTROSE 5% 1,000 ML IV PRN (09:36)
[2021-10-08] MEDS ORDERED: NALOXONE HCL 0.4 MG/1 ML VIAL/CARP IV PRN (10:05)
[2021-10-08] MEDS ORDERED: fentaNYL 2MCG/ML ROPIVACAINE 1.25MG/ML 100 ML BAG EPI PRN (10:05)
[2021-10-08] MEDS ORDERED: diphenhydrAMINE 50 MG/ML VIAL IV PRN (10:05)
[2021-10-08] MEDS ORDERED: NALBUPHINE HCL INJ 10 MG/ML AMP IV PRN (10:05)
[2021-10-08] MEDS ORDERED: NALOXONE HCL 1 MG in SODIUM CHLORIDE 0.9% 1000ML 1,000 ML IV PRN (10:05)
[2021-10-08] MEDS ORDERED: ePHEDrine sulfate 50 MG/ML AMP IV PRN (10:05)
--- NOTE | 2021-10-08 10:06 | Anesthesiology Consultation ---
Date of Service October 08, 2021 Assessment & Plan Chart Review Chart Review: Acceptable Risk for Surgery and Patient NOT seen in Pre Admission Testing ASA ASA3 Proposed Anesthesia Anesthesia Type: Labor Epidural History Height/Weight Height: 5 ft 1 in Weight: 75.296 kg Allergies Allergy/AdvReac Type Severity Reaction Status Date / Time No Known Allergies Allergy Verified 10/06/21 17:13 Medications Home Medications Medication Instructions Recorded Confirmed Last Taken prenat.vits,mati,mhq-vnpu-ftvkg 1 tab PO DAILY 02/16/21 10/06/21 10/05/21 21:00 ferrous sulfate 325 mg (65 mg 65 mg PO DAILY 05/10/21 10/06/21 10/05/21 21:00 iron) tablet (FeroSul) acetone (urine) test (Ketone Urine #50 ea 06/03/21 10/06/21 Unknown Test) blood sugar diagnostic (OneTouch #150 ea 07/04/21 10/06/21 Unknown Verio test strips) pen needle, diabetic 32 gauge x #100 ea 07/08/21 10/06/21 Unknown " (BD Ultra-Fine Afshan Pen Needle) insulin NPH isoph U-100 human 100 14 unit SUBCUT QPM 10/06/21 10/06/21 10/04/21 21:00 unit/mL (3 mL) subcutaneous pen (Humulin N NPH U-100 Insulin KwikPen) sertraline 50 mg tablet (Zoloft) 50 mg PO DAILY 10/06/21 10/06/21 10/05/21 21:00 Active Medications Generic Name Dose Route Start Last Admin Trade Name Freq PRN Reason Stop Dose Admin Butorphanol Tartrate 1 mg 10/06/21 22:57 10/07/21 00:56 Butorphanol Tartrate 1 Mg/Ml Vial IV 11/05/21 22:56 1 mg Q2HWA PRN Administration Pain Lactated Ringer's 1,000 mls @ 125 mls/hr 10/06/21 22:17 10/07/21 14:22 Lr IV 10/08/21 22:16 25 mls/hr .Q8H PRN Infusion L&D Protocol Protocol Oxytocin 30 units in 500 mls @ 26 mls/hr 10/06/21 22:18 10/08/21 05:00 Pitocin IV 10/08/21 22:17 1.56 units/hr .[id number] PRN 26 mls/hr Labor Induction/Augmentation Titration Protocol 1.56 UNITS/HR Dextrose 1,000 mls @ 100 mls/hr 10/07/21 12:34 10/08/21 09:36 D5w IV 11/06/21 12:33 100 mls/hr .Q10H PRN Administration BSG 180 or below Protocol Insulin Human NPH 14 units 10/06/21 23:25 10/07/21 00:50 Insulin Human Nph SC 11/05/21 23:24 14 units QPM EDNA Administration Ondansetron HCl 4 mg 10/07/21 13:32 10/07/21 23:47 Ondansetron Inj 2 Mg/Ml 2 Ml Vial IV 10/08/21 13:31 4 mg Q6H PRN Administration Nausea And Vomiting Ropivacaine 100 ml 10/07/21 13:32 10/08/21 09:24 Fentanyl 2mcg/Ml Ropivacaine 1.25mg/Ml 100 Ml Bag EPI 10/08/21 13:31 100 ml PRN PRN Administration Pain R/T Labor Protocol NPO Date Last Intake of Fluids: 10/07/21 Time Last Intake of Fluids: 13:00 Date Last Intake of Solids: 10/06/21 Time Last Intake of Solids: 21:00 Past Medical History Medical History Acne Anxiety Depression Varicella vaccination Exercise / Class Metabolic Activity II 4-5 Yardwork/Stairs/Walk up hill Past Family History Family History Grandmother (Maternal) Uterine cancer Aunt Breast cancer great aunt Denies family history of Ovarian cancer Prostate cancer Myocardial infarction Colorectal cancer Past Surgical History Surgical History S/P wisdom tooth extraction Past Anesthesia History No Hx of Anesthesia Complications and No Family Hx of Anesthesia Complications History of PONV No Hx of PONV and No Hx of Motion Sickness Social History Smoking Status: Never smoker Hx Alcohol Use: No Hx Substance Use: No Physical Exam Vital Signs Last Vital Signs Temp 37.5 C 10/08/21 05:44 Pulse 102 H 10/08/21 10:01 Resp 18 10/08/21 05:33 BP 184/101 H 10/08/21 10:01 Pulse Ox 97 10/08/21 09:59 Testing Laboratory Results 10/06/21 17:44 10/06/21 17:44 10/08/21 10/08/21 10/08/21 07:55 06:13 05:08 POC Glucose 107 H 104 H 95 10/08/21 10/08/21 10/08/21 04:11 03:05 02:03 POC Glucose 95 98 90 10/08/21 10/07/21 10/07/21 01:03 23:54 22:24 POC Glucose 87 85 91
--- NOTE | 2021-10-08 11:03 | Labor Progress Brief Note ---
Date of Service October 08, 2021 Subjective pushing, has alot of anxiety about being able to push Assessment & Plan (1) Pre-eclampsia, mild: (2) Insulin controlled gestational diabetes mellitus (GDM) during : (3) Encounter for induction of labor: Plan: cont 2nd stage. support given. fhts reassuring overall, now with more early decels. pit infusing. Admission and Anticipated Discharge Date Admission Date: October 06, 2021 Physical Exam Constitutional: WD/WN, vitals as above Genitourinary: Manual OB Exam: + cervical dilation 10 cm, + cervical effacement 100% and + station + 2 OB Exam Monitor Tracing: + external FHT monitor used (135 mod variability, +spont accels), + external uterine monitor used, + category II (occas varible decel with ctx. ) and + normal FHT variability [facility] & Data ([facility]) Vital Signs (Past 12 Hours) Vital Signs Temp Pulse Resp BP Pulse Ox 10/08/21 10:55 117 H 100 10/08/21 10:51 108 H 83 L 10/08/21 10:50 120 H 94 10/08/21 10:45 119 H 95 10/08/21 10:40 111 H 97 10/08/21 10:38 119 H 91 10/08/21 10:34 118 H 97 10/08/21 10:29 119 H 97 10/08/21 10:24 116 H 98 10/08/21 10:19 102 H 96 10/08/21 10:14 103 H 97 10/08/21 10:09 113 H 95 10/08/21 10:04 109 H 98 10/08/21 10:01 102 H 184/101 H 10/08/21 09:59 98 H 97 10/08/21 09:54 95 H 96 10/08/21 09:49 90 96 10/08/21 09:44 100 H 98 10/08/21 09:39 94 H 97 10/08/21 09:34 106 H 97 10/08/21 09:31 116 H 166/104 H 10/08/21 09:29 98 H 97 10/08/21 09:24 113 H 98 10/08/21 09:19 108 H 98 10/08/21 09:14 100 H 96 10/08/21 09:09 110 H 97 10/08/21 09:04 99 H 98 10/08/21 08:59 95 H 154/89 H 97 10/08/21 08:54 102 H 97 10/08/21 08:49 99 H 97 10/08/21 08:44 102 H 98 10/08/21 08:39 89 96 10/08/21 08:34 94 H 97 10/08/21 08:29 109 H 100 10/08/21 08:28 116 H 157/93 H 10/08/21 08:24 106 H 98 10/08/21 08:19 107 H 98 10/08/21 08:14 101 H 98 10/08/21 08:12 111 H 133/87 10/08/21 08:09 108 H 99 10/08/21 08:04 114 H 99 10/08/21 07:59 108 H 97 10/08/21 07:54 109 H 152/106 H 10/08/21 07:49 117 H 133/81 10/08/21 07:33 112 H 157/98 H 10/08/21 07:28 99 H 139/97 10/08/21 07:23 100 H 146/105 H 10/08/21 07:19 93 H 138/85 10/08/21 07:13 106 H 137/85 10/08/21 07:08 106 H 132/83 10/08/21 07:04 104 H 119/57 L 10/08/21 06:58 90 111/57 L 10/08/21 06:53 98 H 117/66 10/08/21 06:48 94 H 126/68 10/08/21 06:44 100 H 126/58 L 10/08/21 06:38 97 H 130/82 10/08/21 06:34 107 H 124/71 10/08/21 06:28 102 H 120/61 10/08/21 06:23 103 H 135/68 10/08/21 06:18 118 H 128/73 10/08/21 06:13 110 H 132/81 10/08/21 06:09 106 H 131/77 10/08/21 06:06 114 H 144/79 H 10/08/21 06:03 125 H 128/80 10/08/21 05:58 116 H 99 10/08/21 05:53 113 H 98 10/08/21 05:48 110 H 98 10/08/21 05:45 106 H 147/72 H 10/08/21 05:44 99.5 F 10/08/21 05:43 115 H 98 10/08/21 05:38 124 H 98 10/08/21 05:33 18 10/08/21 05:32 114 H 99 10/08/21 05:29 112 H 158/79 H 10/08/21 05:27 107 H 99 10/08/21 05:22 116 H 98 10/08/21 05:20 108 H 158/95 H 10/08/21 05:17 108 H 99 10/08/21 05:15 109 H 175/93 H 10/08/21 05:12 109 H 99 10/08/21 05:07 112 H 155/76 H 99 10/08/21 05:02 119 H 100 10/08/21 05:00 106 H 170/106 H 10/08/21 04:57 97 H 99 10/08/21 04:56 102 H 91 10/08/21 04:52 96 H 98 10/08/21 04:50 88 92 10/08/21 04:47 90 98 10/08/21 04:45 93 H 136/94 10/08/21 04:42 91 H 97 10/08/21 04:37 96 H 92 10/08/21 04:32 93 H 93 10/08/21 04:30 77 108/64 10/08/21 04:27 79 95 10/08/21 04:22 84 96 10/08/21 04:21 99.0 F 10/08/21 04:17 86 97 10/08/21 04:14 102 H 130/67 10/08/21 04:12 112 H 95 10/08/21 04:09 99.0 F 92 H 18 94 10/08/21 04:07 83 95 10/08/21 04:02 79 94 10/08/21 04:01 81 93 10/08/21 03:59 79 102/57 L 10/08/21 03:57 81 95 10/08/21 03:54 77 94 10/08/21 03:52 92 H 96 10/08/21 03:47 78 94 10/08/21 03:44 78 104/57 L 10/08/21 03:42 79 95 10/08/21 03:41 78 94 10/08/21 03:37 77 95 10/08/21 03:32 91 H 95 10/08/21 03:30 80 106/56 L 10/08/21 03:29 80 94 10/08/21 03:27 83 95 10/08/21 03:25 18 10/08/21 03:23 83 94 10/08/21 03:22 96 H 96 10/08/21 03:17 83 93 10/08/21 03:16 80 94 10/08/21 03:14 89 106/55 L 10/08/21 03:12 81 95 10/08/21 03:10 85 94 10/08/21 03:07 109 H 96 10/08/21 03:02 84 93 10/08/21 02:59 81 103/53 L 10/08/21 02:57 79 95 10/08/21 02:56 82 93 10/08/21 02:52 83 95 10/08/21 02:47 98 H 96 10/08/21 02:45 86 113/58 L 10/08/21 02:42 102 H 95 10/08/21 02:37 87 96 10/08/21 02:32 90 97 10/08/21 02:29 89 131/69 10/08/21 02:27 95 H 97 10/08/21 02:24 91 H 139/75 10/08/21 02:22 98 H 156/93 H 97 10/08/21 02:19 97 H 144/80 H 10/08/21 02:17 93 H 98 10/08/21 02:15 98.6 F 10/08/21 02:14 90 146/84 H 10/08/21 02:12 89 97 10/08/21 02:07 89 97 10/08/21 02:02 98 H 99 10/08/21 02:00 18 10/08/21 01:59 93 H 129/86 10/08/21 01:57 90 98 10/08/21 01:52 87 99 10/08/21 01:47 92 H 98 10/08/21 01:46 109 H 130/90 10/08/21 01:42 95 H 100 10/08/21 01:37 100 H 100 10/08/21 01:34 103 H 125/70 10/08/21 01:32 98 H 99 10/08/21 01:30 18 10/08/21 01:27 92 H 100 10/08/21 01:22 83 98 10/08/21 01:17 86 98 10/08/21 01:14 90 139/95 10/08/21 01:12 95 H 99 10/08/21 01:07 103 H 100 10/08/21 01:02 97 H 98 10/08/21 01:00 18 10/08/21 00:59 85 127/86 10/08/21 00:57 93 H 98 10/08/21 00:52 91 H 100 10/08/21 00:47 84 98 10/08/21 00:44 89 122/84 10/08/21 00:42 92 H 98 10/08/21 00:37 99 H 98 10/08/21 00:32 77 96 10/08/21 00:30 81 18 121/76 10/08/21 00:27 80 97 10/08/21 00:22 88 97 10/08/21 00:17 81 98 10/08/21 00:15 87 122/79 10/08/21 00:12 117 H 99 10/08/21 00:10 99.1 F 18 10/08/21 00:07 96 H 100 10/08/21 00:02 95 H 99 10/08/21 00:00 93 H 18 122/82 10/07/21 23:57 101 H 100 10/07/21 23:52 98 H 98 10/07/21 23:47 107 H 100 10/07/21 23:45 98 H 121/77 10/07/21 23:42 84 100 10/07/21 23:37 124 H 100 10/07/21 23:32 116 H 100 10/07/21 23:30 97 H 116/71 10/07/21 23:27 96 H 100 10/07/21 23:22 108 H 100 10/07/21 23:17 106 H 100 10/07/21 23:14 118 H 123/72 10/07/21 23:12 115 H 100 10/07/21 23:07 84 100 10/07/21 23:02 108 H 100 10/07/21 23:01 98.8 F 18 Coding Level of Care Code None Diagnoses Pre-eclampsia, mild O14.00 Insulin controlled gestational diabetes mellitus (GDM) during O24.414 Encounter for induction of labor Z34.90
[2021-10-08] MEDS ORDERED: LIDOCAINE 1% LOCAL 20 ML VIAL ONE (13:08)
--- NOTE | 2021-10-08 13:25 | Delivery Summary ---
Vaginal Delivery Summary Date of Service October 08, 2021 Vaginal Delivery Summary and 2nd Degree LAC The patient dilated to complete and pushed to deliver a viable male infant Apgars 8 and 9 via over 2nd degree perineal laceration. With delivery of cephalic, dark stained fluid noted, ? old blood vs. meconium. Mouth and nose bulb suctioned at perineum. Shoulders and body delivered with ease. Infant was vigorous and crying at . Cord clamped at 20 seconds of life and infant to maternal abdomen where the cord was then doubly clamped and cut. Placenta delivered spontaneously and intact, three-vessel cord. Hemostasis achieved with dilute pitocin and uterine massage and drainage of the bladder for approximately 150 cc under sterile conditions. Cervix and sulci intact. Laceration repaired with 3-0 vicryl in routine fashion after 1% local lidocaine anesthesia. EBL 300 cc. Mother and baby stable in recovery. [facility] Vaginal Delivery Charge Delivery Type Details: and 2nd Degree LAC
[2021-10-08] MEDS ORDERED: ACETAMINOPHEN 325 MG TAB PO PRN (13:49)
[2021-10-08] MEDS ORDERED: HYDROCORTISONE ACETATE 25 MG SUPP PR PRN (13:49)
[2021-10-08] MEDS ORDERED: OXYTOCIN 30 UNITS/500 ML BAG IV PRN (13:49)
[2021-10-08] MEDS ORDERED: BENZOCAINE 20% AER SPR 82.5 GM CAN EXT PRN (13:49)
[2021-10-08] MEDS ORDERED: DIPHTHERIA/TETANUS/PERTUSSIS 0.5 ML SYR/VIAL IM ONE (13:49)
[2021-10-08] MEDS ORDERED: oxyCODONE/ACETAMINOPHEN 5mg/325mg TAB PO PRN (13:49)
[2021-10-08] MEDS ORDERED: OXYTOCIN 20 UNITS in LACTATED RINGER'S 1,000 ML IV SCH (14:15)
--- NOTE | 2021-10-08 14:47 | Anesthesia Procedure Note ---
Date of Service October 08, 2021 Anesthesia Post Epidural Note Vital Signs Vital Signs: Temp Pulse Resp BP Pulse Ox 37.5 C 95 H 18 144/79 H 100 10/08/21 05:44 10/08/21 14:38 10/08/21 05:33 10/08/21 14:38 10/08/21 10:55 Pain Intensity Bilateral Abdomen: Pain Intensity: 5 Notes Mental Status: alert / awake / arousable Airway Patency, RR, SpO2: stable & adequate Anesthetic Complications: no major complications apparent Epidural: Removed without complications and With tip intact
[2021-10-08] MEDS: IBUPROFEN 600 MG TAB PO PRN (20:09)
[2021-10-08] MEDS: DOCUSATE SODIUM 100 MG CAP PO SCH (20:09)
[2021-10-08] MEDS: SERTRALINE HCL 50 MG TABLET PO SCH (20:10)
[2021-10-09] MEDS: IBUPROFEN 600 MG TAB PO PRN ×4 (00:40→21:09)
[2021-10-09] MEDS: DOCUSATE SODIUM 100 MG CAP PO SCH ×2 (08:11→21:09)
[2021-10-09] MEDS: PRENATAL VITAMIN 1 TAB PO SCH ×2 (08:11→08:15)
[2021-10-09] MEDS ORDERED: SERTRALINE HCL 50 MG TABLET PO SCH (09:00)
--- NOTE | 2021-10-09 10:39 | Obstetrical Progress Note ---
Date of Service October 09, 2021 Assessment & Plan (1) examination following vaginal delivery: stable, routine pp care. rh pos, ri, . bps noted, some mild range, some normal. will cont to monitor trend. Day #:: 1 Subjective Ambulation: ambulating normally Voiding: no voiding problems Diet Tolerance:: regular diet Lochia:: Small Feeding Type:: breast feeding pain well controlled. Constitutional: + as per Subjective / HPI Physical Exam Constitutional WD/WN, vitals as above Respiratory normal respiratory effort, lungs clear to auscultation Cardiovascular Rate/Rhythm: regular rate and regular rhythm Gastrointestinal (Abdomen) Inspection/Auscultation: abdomen normal to inspection Percussion/Palpation: abdomen soft Fundus firm 2cm down Musculoskeletal nt calves no edema Neurologic grossly normal Psychiatric A+Ox3, euthymic affect Results & Data ([facility]) Vital Signs (Past 12 Hours) Vital Signs Temp Pulse Resp BP Pulse Ox 10/09/21 03:15 98.1 F 73 16 129/82 95 10/08/21 22:57 98.6 F 78 16 124/83 98
[2021-10-09] MEDS: SERTRALINE HCL 50 MG TABLET PO SCH (21:09)
--- NOTE | 2021-10-10 06:54 | Obstetrical Progress Note ---
Date of Service October 10, 2021 Assessment & Plan (1) examination following vaginal delivery: Plan: 26yo PPD 2 s/p at 39weeks 5 days -Continue routine care -Vitals reviewed- afebrile -Mildly elevated BP this morning, will need to repeat BP in 1 week outpatient -Encourage ambulation, regular diet -Pain control with ibuprofen, acetaminophen PRN -Encourage -Hgb stable -F/u in 6 weeks with OB Admission and Anticipated Discharge Date Admission Date: October 06, 2021 Supervising Physician Co-Signing Physician Notes Resident Physician Supervision Note: I was present with Dr. Santamaria during the history and exam. I discussed the case with the resident and agree with the findings and plan as documented in the note. Any exceptions or clarifications are listed here: denies parsons or visual change. has not had sleep and attributes that to her bp. will need to start bp meds and watch further today. she and partner are agreeable. other than bp, meeting milestones for dc and instructions reviewed. will see how her bp responds to make plans. she has high anxiety as well. Documented By: Sonia Porras MD, FACOG Subjective Ambulation: yes Voiding: yes Passing Gas: no BM: no Diet Tolerance: regular w/o N/V Lochia: small Feeding Type: Current Pain Level(1-10): 2 Review of Systems Review of Systems: Denies fevers/chills. Denies dyspnea, cough. Denies chest pain. Denies breast discharge. Denies dysuria. Denies headache. Denies back pain. Physical Exam Physical Exam: General: Alert, oriented, no acute distress Cardiac: Regular rate and rhythm, normal S1, S2. No murmurs appreciated. Respiratory: Clear to auscultation b/l. No wheezes or crackles. No increased work of breathing or accessory muscle use Abdomen: Soft, nontender, nondistended. Fundus firm and palpable at 1 cm below umbilicus. No guarding or rebound. Skin: No rashes or lesions Extremities: Warm, dry, well-perfused. No lower extremity edema, erythema or swelling. Results & Data ([facility]) Vital Signs (Past 12 Hours) Vital Signs Temp Pulse Resp BP BP Pulse Ox 10/09/21 23:20 146/93 H 10/09/21 22:55 37.1 C 77 18 168/111 H 154/107 H 97 10/09/21 20:55 37.2 C 91 H 18 149/94 H 97 Resident Activity Tracking Resident Involvement: Resident Care Provided Care Provided: OB Delivery
[2021-10-10] MEDS: IBUPROFEN 600 MG TAB PO PRN (07:38)
[2021-10-10] MEDS: DOCUSATE SODIUM 100 MG CAP PO SCH (07:39)
[2021-10-10] MEDS: PRENATAL VITAMIN 1 TAB PO SCH (07:40)
[2021-10-10] MEDS ORDERED: LABETALOL HCL 100 MG TAB PO SCH (09:00)
== END 2021-10-10 17:00 | disposition home or self-care (01) | DRG 807 ==
LOC: 4S1 16:52 → 4S2 10-08 16:54